=== PATIENT | male | born 1960 | race Caucasian/White ===

== ENCOUNTER → 2021-01-29 | Outpatient (CLI) | payer MEDICARE, OTHER ==
[2016-05-26 15:45] VITALS: BP 136/79
[~2021-01-29] MED LIST: ACET-1707 PO; OXYC-325 PO
== END ==
LOC: LAB 09:41
PROVIDERS: ATTEND Surgery
DX: Z01.812 Encounter for preprocedural laboratory examination (principal); Z20.822 Contact with and (suspected) exposure to COVID-19; K40.90 Unilateral inguinal hernia, without obstruction or gangrene, not specified as recurrent
CPT/HCPCS: U0003; U0005

== ENCOUNTER 2021-01-31 06:58 | Day surgery (SDC) | payer MEDICARE, MEDICAID ==
[~2021-01-31] VITALS: Ht 172.7 cm; Wt 80.5 kg
[~2021-01-31 06:58] MED LIST changes: +ACETAMINOPHEN 500 MG TABLET PO PRN; +HYDROmorphone 2 MG/ML VIAL IVP PRN; +IV RINGERS,LACTATED 1000ML 1,000 ML IV SCH; +MORPHINE SULFATE 2 MG/ML INJ. IVP PRN; -OXYC-325 PO; +PROCHLORPERAZINE 10 MG/2 ML VIAL. IVP PRN; +fentaNYL PF VIAL 100 MCG/2 ML VIAL IVP PRN
[2021-01-31] MEDS ORDERED: ONDANSETRON PF 4 MG/2 ML VIAL. ONE (07:21)
[2021-01-31] MEDS ORDERED: PROPOFOL 10 MG/ML (20ML) VIAL. IV ONE (07:21)
[2021-01-31] MEDS ORDERED: DEXAMETHASONE SOD PHOS 4 MG/ML VIAL ONE (07:21)
[2021-01-31] MEDS ORDERED: LIDOCAINE 2% PF 5 ML VIAL. ONE (07:21)
[2021-01-31] MEDS ORDERED: ROCURONIUM 50 MG/5 ML VIAL. ONE (07:22)
[2021-01-31] MEDS ORDERED: fentaNYL PF VIAL 100 MCG/2 ML VIAL ONE ×2 (07:23→09:45)
[2021-01-31] MEDS ORDERED: MIDAZOLAM HCL/PF 2 MG/2 ML VIAL. ONE (07:24)
[2021-01-31] MEDS ORDERED: SUCCINYLCHOLINE 200 MG/10 ML VIAL. ONE (07:24)
[2021-01-31 07:27] VITALS: BP 146/99
[2021-01-31] MEDS ORDERED: KETOROLAC 30 MG/ML VIAL. ONE (07:28)
--- NOTE | 2021-01-31 07:48 | PDOC1 ---
History and Physical Date of Admission Date of Admission DATE: 01/31/21 TIME: 07:45 Identification/Chief Complaint Chief Complaint Left inguinal hernia Source Source: Patient History of Present Illness History of Present Illness 60-year-old male with complaints of a large bulge in his left groin occasionally has pain denies any nausea vomiting fevers or chills been present for approximately 3 years Past Medical History Cardiovascular: No pertinent hx Pulmonary: No pertinent hx CENTRAL NERVOUS SYSTEM: Other (Brain injury) GI: No pertinent hx Heme/Onc: No pertinent hx Hepatobiliary: No pertinent hx Psych: No pertinent hx Rheumatologic: No pertinent hx Infectious disease: No pertinent hx ENT: No pertinent hx Renal/: No pertinent hx Endocrine: No pertinent hx Dermatology: No pertinent hx Past Surgical History Past Surgical History: No pertinent history Family History Family History: No Significant Social History Smoke: No ALCOHOL: rare Drugs: None Current Medications Current Medications Current Medications Fentanyl Citrate (Fentanyl 2ml Vial) 25 mcg PRN Q5MIN PRN IVP MILD PAIN 1-3; Start 01/31/21 at 06:00; Stop 02/01/21 at 05:59 Fentanyl Citrate (Fentanyl 2ml Vial) 50 mcg PRN Q5MIN PRN IVP MODERATE PAIN 4- 6; Start 01/31/21 at 06:00; Stop 02/01/21 at 05:59 Morphine Sulfate (Morphine Sulfate) 1 mg PRN Q10MIN PRN IVP SEVERE PAIN 7-10; Start 01/31/21 at 06:00; Stop 02/01/21 at 05:59 Ringer's Solution 1,000 ml @ 30 mls/hr Q24H IV Last administered on 01/31/21at 07:29; Start 01/31/21 at 06:00; Stop 01/31/21 at 17:59 Hydromorphone HCl (Dilaudid) 0.5 mg PRN Q10MIN PRN IVP SEVERE PAIN 7-10, 2nd CHOICE; Start 01/31/21 at 06:00; Stop 02/01/21 at 05:59 Prochlorperazine Edisylate (Compazine) 5 mg PACU PRN PRN IVP NAUSEA, MRX1; Start 01/31/21 at 06:00; Stop 02/01/21 at 05:59 Acetaminophen (Tylenol) 1,000 mg 1X PREOP PRN PO PRIOR TO PROCEDURE Last administered on 01/31/21at 07:30; Start 01/31/21 at 06:00; Stop 01/31/21 at 16:00 Cefazolin Sodium/ Dextrose 50 ml @ 100 mls/hr 1X PREOP PRN IV PRIOR TO PROCEDURE; Start 01/31/21 at 06:00; Stop 01/31/21 at 18:00 Propofol (Diprivan) 200 mg STK-MED ONCE IV ; Start 01/31/21 at 07:21; Stop 01/31/21 at 07:21; Status DC Lidocaine HCl (Lidocaine Pf 2% Vial) 5 ml STK-MED ONCE .ROUTE ; Start 01/31/21 at 07:21; Stop 01/31/21 at 07:22; Status DC Ondansetron HCl (Zofran) 4 mg STK-MED ONCE .ROUTE ; Start 01/31/21 at 07:21; Stop 01/31/21 at 07:22; Status DC Dexamethasone Sodium Phosphate (Decadron) 4 mg STK-MED ONCE .ROUTE ; Start 01/31/21 at 07:21; Stop 01/31/21 at 07:22; Status DC Rocuronium [place] (Zemuron) 50 mg STK-MED ONCE .ROUTE ; Start 01/31/21 at 07:22; Stop 01/31/21 at 07:23; Status DC Fentanyl Citrate (Fentanyl 2ml Vial) 100 mcg STK-MED ONCE .ROUTE ; Start 01/31/21 at 07:23; Stop 01/31/21 at 07:24; Status DC Succinylcholine Chloride (Anectine) 200 mg STK-MED ONCE .ROUTE ; Start 01/31/21 at 07:24; Stop 01/31/21 at 07:24; Status DC Midazolam HCl (Versed) 2 mg STK-MED ONCE .ROUTE ; Start 01/31/21 at 07:24; Stop 01/31/21 at 07:24; Status DC Ketorolac Tromethamine (Toradol 30mg Vial) 30 mg STK-MED ONCE .ROUTE ; Start 01/31/21 at 07:28; Stop 01/31/21 at 07:28; Status DC Active Scripts Active Reported Night Time Pain Medicine Cplt (Acetaminophen/Diphenhydramine) 1 Each Tablet 1 Each PO HS Allergies Allergies: Coded Allergies: No Known Drug Allergies (Unverified , 01/31/21) ROS Genitourinary: YES Pain Physical Exam General: Alert, Oriented X3, Cooperative, No acute distress HEENT: Atraumatic, EOMI Lungs: Clear to auscultation, Normal air movement Heart: RRR, no murmurs Abdomen: Normal bowel sounds, Soft, No tenderness Male Genitals Exam: hernia (Left inguinal hernia) Rectal Exam: not examined Extremities: No clubbing, No cyanosis, No edema Skin: No rashes, No significant lesion Neuro: Normal gait, Normal speech Psych/Mental Status: Mental status NL Vitals Vitals Vital Signs Date Time Temp Pulse Resp B/P (MAP) Pulse Ox O2 Delivery O2 Flow Rate FiO2 01/31/21 07:27 97.9 63 96 97.9 01/31/21 07:22 20 146/99 Room Air VTE Prophylaxis Ordered VTE Prophylaxis Devices: Yes VTE Pharmacological Prophylaxi: Contraindicated Assessment/Plan Assessment/Plan Left inguinal hernia plan robotic laparoscopic repair with mesh Justifications for Admission Other Justification BELLE ELISE MD Jan 31, 2021 07:48
[2021-01-31] MEDS ORDERED: BUPIVACAINE-EPI 0.25%-1:200000 MPF 30 ML VIAL. ONE (07:53)
[2021-01-31] MEDS ORDERED: MINERAL OIL for SURGERY 10 ML VIAL. MC ONE (07:53)
[2021-01-31] MEDS ORDERED: GLYCOPYRROLATE 1 MG/5 ML VIAL. ONE (08:41)
[2021-01-31] MEDS ORDERED: NEOSTIGMINE METHYLSULFATE 5 MG/5 ML SYRINGE. ONE (08:54)
--- NOTE | 2021-01-31 09:33 | PDOC4 ---
Operative Note Operative Note Date: January 31, 2021 at 930 Preoperative diagnosis: Left inguinal hernia Postoperative diagnosis: Left inguinal hernia and right inguinal hernia Procedure: Robotic assisted laparoscopic bilateral inguinal hernia repair with mesh Surgeon: Slade Specimen: None Dictation: Patient is a 60-year-old male with complaints of a painful bulge in his left groin for approximately 3 years. Procedure of robotic assisted laparoscopic inguinal hernia repair with mesh was explained to the patient detail risk benefits were also discussed including bleeding infection injury to intra-abdominal contents possible necessitating further open operations alternatives to this procedure also discussed with the patient who seemed to understand and gave a verbal written consent to have the procedure performed. Patient was taken to the operating room placed in the supine position general anesthesia was initiated once patient was sleeping in bed is placed in low lithotomy positioning and his abdomen was prepped and draped usual sterile fashion using ChloraPrep. An area just above his umbilicus was injected with quarter percent Marcaine with epinephrine incision was made 11 blade scalpel and a varies needle was placed within the abdomen creating pneumoperitoneum once this was complete 8 mm ventral port was placed in the da [place] camera's placed within the abdomen which was inspected there was a large hernia with incarcerated small bowel on the left side was also noted on the right side moderate sized hernia with no incarceration. 8 mm port was placed in the left midabdomen and an 8 mm port was placed in the right midabdomen under direct visualization the robot was brought and docked all port sites surgeon went to the robotic console using a grasper and Endo Silvano scissors the incarcerated small bowel on the left side was reduced a window was made in the peritoneum and a inferior flap was propagated using blunt and sharp dissection reducing the hernia sac and contents. A large Bard 3D max mesh for the left side was placed over the hernia defect this was sewn into place superiorly with 3-0 Vicryl and at Rich's ligament with a 3-0 Vicryl single interrupted suture. Once this was complete attention was returned to the right side where the peritoneum was incised again and a flap was propagated inferiorly reducing the hernia sac and contents. A large Bard 3D max mesh for the right side was used this was placed sewn into place superiorly with a single interrupted 3-0 Vicryl suture. Peritoneum was then closed in both sides with a running 2 OV lock absorbable suture. Sutures removed from the abdomen the robot was undocked from all ports all ports were removed the pneumoperitoneum was reduced all port sites were closed with 4 subcuticular Monocryl Mastisol Steri-Strips and island dressings were applied. Patient was awakened and extubated in the operating room taken to recovery in stable condition all sponge instrument needle counts listed as correct estimated blood loss 10 mL BELLE ELISE MD Jan 31, 2021 09:33
[2021-01-31] MEDS ORDERED: OXYC-325 PO (09:35)
--- NOTE | 2021-01-31 09:37 | DISCH ---
DISCHARGE INSTRUCTIONS Condition on Discharge Condition on Discharge: Stable Activity After Discharge Activity Instructions for Disc: Avoid exertion Other activity instructions: No lifting more than 20 pounds for 2 weeks Diet after Discharge Diet after Discharge: Regular Wound Incision Care Other wound/incision instructi: Joan shower in 24 hours Contacting the [facility] after DC Call your doctor for: If your condition worsens Follow-Up Follow up with: Dr. Elise in 2 weeks BELLE ELISE MD Jan 31, 2021 09:37
[2021-01-31] MEDS ORDERED: HYDROmorphone 2 MG/ML VIAL ONE (09:45)
[2021-01-31] MEDS ORDERED: oxyCODONE/APAP 5/325 1 TAB TABLET PO ONE (10:15)
[2021-01-31 10:22] VITALS: BP 99/62
== END 2021-01-31 10:52 | disposition home or self-care (01) ==
LOC: SURG 06:58
PROVIDERS: ATTEND Surgery
DX: K40.20 Bilateral inguinal hernia, without obstruction or gangrene, not specified as recurrent (principal); Z79.899 Other long term (current) drug therapy
CPT/HCPCS: 49650; A4364; A4930; A6219; C1781; J0690; J1100; J1170; J1885; J2405; J2704; J2710; J3010; J3490; A4223; A4657; J0330; J2250